=== PATIENT | male | born 1980 | race Caucasian/White ===

== ENCOUNTER 2016-11-26 07:02 | Emergency (ER) | payer OTHER ==
[2016-11-26 07:34] VITALS: BP 158/100
--- NOTE | 2016-11-26 07:36 | UC ---
Katarzyna Bond Thomas, scrib[facility] for [facility] MD on 11/26/16 at 0709 . Throat Pain/Nasal Marty HPI - HPI Summary HPI Summary: In Room: The pt is a 36 y/o M presenting to the ED c/o sinus discomfort that began two days ago. The pt rates the pain 6/10. The pain is aggravated and alleviated by nothing. The patient has treated the pain with Sudafed, ibuprofen (200mg), Xyrtec, and Tylenol MANAGER CREDIT. These medications have not alleviated his pain. Pt additionally c/o insomnia secondary to the sinus discomfort. Pt denies any nasal discharge, N/V/D. He has had his sinuses evaluated by Dr. Conley, ENT , as well as an wire machine cutter and an oral surgeon. These evaluations have shown no structural defects, although his oral surgeon noted that he will have chronically bad sinuses. The patient notes that he has had similar pain approximately once-yearly sinus pain that radiates into teeth and down his neck which is normally alleviated by OTC medication. PMHx: migraines. PSHx: oral surgery 2008. SHx: smoking. FHx: DM, HTN, CA. MD Note: Previous visits for sinus issues including ENT evaluation by Dr. Conley. Vital signs stable, afebrile, pulse ox 99, 6/10, discomfort of sinuses. BP Noted 156/105. He is taking Sudafed and ibuprofen. Nurses note: Vital signs stable, afebrile, pulse ox 99, 6/10, discomfort of sinuses. - History of Current Complaint Stated Complaint: SINUS ISSUE Time Seen by Provider: 11/26/16 07:03 Hx Obtained From: Patient Onset/Duration: Lasting Days - 2, Still Present Pain Intensity: 6 Pain Scale Used: 0-10 Numeric Cough: None Associated Signs & Symptoms: Positive: Sinus Discomfort. Negative: Nasal Discharge, Fever Related History: Other (Noted In Comments) - Prior ENT, wire machine cutter, and oral surgeon evaluation. - Allergies/Home Medications Allergies/Adverse Reactions: Allergies Allergy/AdvReac Type Severity Reaction Status Date / Time No Known Allergies Allergy Verified 11/26/16 07:12 Home Medications: Home Medications Acetaminophen [Tylenol] 1 tab PO Q4HR PRN 11/26/16 [History Confirmed 11/26/16] Ibuprofen [Advil] 1 tab PO Q4HR PRN 11/26/16 [History Confirmed 11/26/16] Pseudoephedrine HCl [Sudafed 12 Hour] 1 tab PO BID 11/26/16 [History Confirmed 11/26/16] PMH/Surg Hx/FS Hx/Imm Hx Previously Healthy: No Endocrine History: Other Other Endocrine History: Previous issues with sinus discomfort. Neurological History: Migraine - Surgical History Surgical History: Yes Surgery Procedure, Year, and Place: oral surgery 2008 - Family History Known Family History: Positive: Hypertension, Diabetes - Social History Substance Use Type: None Review of Systems Constitutional: Negative Skin: Negative Eyes: Negative ENT: Other - POS: sinus discomfort. Respiratory: Negative Cardiovascular: Negative Gastrointestinal: Negative Genitourinary: Negative Motor: Negative Neurovascular: Negative Musculoskeletal: Negative Neurological: Negative Psychological: Negative All Other Systems Reviewed And Are Negative: Yes Physical Exam Triage Information Reviewed: Yes Appearance: Well-Appearing, No Pain Distress, Well-Nourished Vital Signs: Initial Vital Signs Temp 97.6 F 11/26/16 07:05 Pulse 80 11/26/16 07:05 Resp 20 11/26/16 07:05 BP 156/105 11/26/16 07:05 Pulse Ox 99 11/26/16 07:05 Eyes: Positive: Conjunctiva Clear ENT: Positive: Hearing grossly normal, Pharynx normal, TMs normal. Negative: Muffled/hoarse voice Neck: Positive: Supple, Nontender Respiratory: Positive: Chest non-tender, Lungs clear, Normal breath sounds, No respiratory distress Cardiovascular: Positive: RRR, No Murmur Abdomen Description: Positive: Nontender, No Organomegaly, Soft Bowel Sounds: Positive: Present Musculoskeletal: Positive: Strength Intact, Other: - Moves all extremities Neurological: Positive: Alert Psychological: Positive: Age Appropriate Behavior Skin: Negative: rashes Throat Pain/Nasal Course/Dx - Differential Dx/Diagnosis Differential Diagnosis/HQI/PQRI: Sinusitis, URI Provider Diagnoses: Right maxillary sinus congestion Discharge - Discharge Plan Condition: Stable Disposition: HOME Referrals: Clayton House MD [Primary Care Provider] - Additional Instructions: WE DISCUSSED: Thank you for helping us improve patient care by filling out the My Point Survey. Warm, moist, head over the sinuses as frequently as possible. Use Zyrtec for your allergies. Use Benadryl one hour before sleep. Consider using a Neti Pot. You can buy this at [employer]. Ibuprofen 600mg PLUS acetaminophen 500mg every 8 hours. Maximum is 3 doses a day. If this dosage is required for more than 5 days, you should re-check with your doctor. Your blood pressure reading today was 156/105, indicating HYPERTENSION. Follow- up with your primary care provider within 4 weeks for blood pressure readings and further evaluation. Check you blood pressure. STOP TAKING SUDAFED. You need further evaluation if you develop a fever or develop new symptoms. Here is some more information: COUGH, CONGESTION of CHEST, SINUSES OR EARS: The most important goal is to liquefy all the phlegm and get it out of your head and chest. Any illness causing cough, congestion, sore throat or sinus discomfort can be helped by doing the following: STAND UNDER SHOWER STREAM TO LOOSEN SECRETIONS. STAY AWAY FROM ANY SMOKE OR IRRITANTS. WHAT ELSE CAN HELP RELIEVE YOUR SYMPTOMS: GENERAL TYPES OF MEDICINE THAT MAY HELP DECONGESTANTS: helps relieve stuffiness and clears sinuses. Pseudoephedrine ( Sudafed or generic) is effective but you need to ask the pharmacist for it because it may be kept behind the counter. ANTIHISTAMINES: are NOT helpful in many colds and flus because they can worsen sore throat, dry eyes and mouth and cause drowsiness. Examples are diphenhydramine, doxylamine and chlorpheniramine. They can help dry you out if you are having profuse, clear drainage from the nose. EXPECTORANTS: helps thin mucous in the nose and chest, making it easier to clear the fluid out. Expectorants are in most combination cough/cold remedies and should be taken with plenty of water. Guaifenesin is the most common expectorant and it comes in pill or liquid form. Mucinex is an extended release form of guaifenesin. COUGH SUPPRESANT: reduces the body's cough reflex. Dextromethorphan is in over the counter products, but sometimes narcotics such as codeine or hydrocodone are used to suppress cough. SPECIFIC MEDICATIONS: The most important goal is to liquefy all the phlegm and get it out of your head and chest: The following medicines (in prescription form or you can buy them without prescription) may help: To help with cough: DEXTROMETHORPHAN (Vicks, Robitussin, Nyquil and other brands) To help break up phlegm: GUAIFENESIN (Mucinex, Robitussin, other brands) To help clear congestion: PSEUDOEPHEDRINE (Sudafed, Dimetapp, other brands) TRY TO CLEAR NOSE: AFRIN NASAL SPRAY: 2-3 SPRAYS PER NOSTRIL, TWICE A DAY FOR TWO DAYS ONLY. USEFUL WAYS TO FEEL BETTER WITHOUT MEDICATIONS: STAND UNDER SHOWER STREAM TO LOOSEN SECRETIONS. USE A VAPORIZOR. STAY AWAY FROM ANY SMOKE OR IRRITANTS. USE SALINE NASAL SPRAY TO KEEP FLOW OF MUCOUS FROM NOSTRILS AND SINUSES. CONSIDER USING NETI POT TO HELP WITH ALLERGIES AND CONGESTION IN THE NOSE. USE THIS THREE TIMES A WEEK. YOU CAN GET THIS AT [employer] IN [place] OR VARIOUS DRUGSTORES. DRINK LOTS OF WARM FLUIDS USEFUL HOME REMEDIES: WARM WATER GARGLES, WITH TSP OF SALT PER 8 OUNCES OF WATER, GARGLE FOR A FEW SECONDS AND SPIT OUT; GARGLE AND SPIT OUT; EVERY THREE HOURS. AND/OR: WARM WATER OR TEA, HONEY AND LEMON; 2-3 CUPS A DAY. FOR SORE THROAT: KEEP THROAT MOIST WITH LOZENGES; TEA AND HONEY. USE WARM WATER GARGLES 3-4 TIMES A DAY. FOLLOW UP: RE-CHECK IN 1O DAYS, NEEDED, IF YOU ARE NOT IMPROVING. RETURN HERE OR SEE YOUR PHYSICIAN. RE-CHECK SOONER IF INCREASED PAIN OR TEMPERATURE. The documentation as recorded by the Katarzyna aviles Thomas accurately reflects the service I personally performed and the decisions made by me, Bryan Yan MD.
== END 2016-11-26 07:46 | disposition home or self-care (01) ==
LOC: UCEAST 07:02
DX: R09.81 Nasal congestion (principal); G43.909 Migraine, unspecified, not intractable, without status migrainosus
CPT/HCPCS: 99212; G0463

== ENCOUNTER 2016-11-26 19:51 | Emergency (ER) | payer OTHER ==
[2016-11-26 22:28] VITALS: BP 155/91
[2016-11-27] MEDS ORDERED: HYDROcodone/ACETAMIN 5-325 MG* 1 TAB PO ONE
[2016-11-27] MEDS ORDERED: Amoxicillin PO (*) 250 MG CAP PO ONE (00:01)
--- NOTE | 2016-11-27 00:13 | ED ---
Throat Pain/Nasal Congestion - HPI Summary HPI Summary: 36 male presents to ED with complaints of right sided sinus/dental pain that is radiating into right pentecostal and neck. Patient states symptoms began ~ 3 days ago and has been worsening. Patient states he has chronic sinus issues and thought at first it was a sinus infection. Denies fever admits to chills and low grade temp of 99F. Patient seen at this morning and given ibuprofen/ tylenol. Patient was not having relief and was told to come to ER for further evaluation. Patient denies migraine however admits to radiation of pain to right side of face/head. Also states the right upper gums have seemed to become very swollen and tender. Describes pain to be in upper gums/roof of mouth. Has been taking daily zyrtec and decongestant. Denies sore throat, nausea/vomiting, chest pain, difficulty breathing, difficulty swallowing and vision changes. States ibuprofen/tylenol helps dull the pain for a few hours however returns quickly. No other noted swelling, redness, or discharge. No other complaints. No PMHx and no new medications. No recent trauma or injury. - History of Current Complaint Chief Complaint: EDHeadache Time Seen by Provider: 11/26/16 22:45 Hx Obtained From: Patient Onset/Duration: Sudden Onset, Lasting Days, Still Present, Worse Since Severity: Moderate Associated Signs And Symptoms: Positive: Sinus Discomfort Cough: None - Allergies/Home Medications Allergies/Adverse Reactions: Allergies Allergy/AdvReac Type Severity Reaction Status Date / Time No Known Allergies Allergy Verified 11/26/16 20:02 PMH/Surg Hx/FS Hx/Imm Hx Endocrine/Hematology History: Denies: Hx Diabetes, Hx Thyroid Disease Cardiovascular History: Denies: Hx Hypertension Respiratory History: Denies: Hx Asthma, Hx Chronic Obstructive Pulmonary Disease (COPD) GI History: Denies: Hx Ulcer - Surgical History Surgery Procedure, Year, and Place: oral surgery 2008 - Immunization History Immunizations Up to Date: Yes Infectious Disease History: No Infectious Disease History: Denies: Hx Hepatitis, Hx Human Immunodeficiency Virus (HIV), Traveled Outside the [place] in Last 30 Days - Family History Known Family History: Positive: Hypertension, Diabetes - Social History Alcohol Use: Weekly Alcohol Amount: 2-3 weekly Substance Use Type: Reports: None Smoking Status (MU): Former Smoker Review of Systems Positive: Chills Eyes: Negative Positive: Dental Pain, Other - sinus congestion Cardiovascular: Negative Respiratory: Negative Gastrointestinal: Negative Musculoskeletal: Negative Skin: Negative Positive: Headache - right sided face/temporal All Other Systems Reviewed And Are Negative: Yes Physical Exam Triage Information Reviewed: Yes Vital Signs On Initial Exam: Initial Vitals Temp Pulse Resp BP Pulse Ox 97.8 F 60 18 159/103 99 11/26/16 19:58 11/26/16 19:58 11/26/16 19:58 11/26/16 19:58 11/26/16 19:58 BP was 153/89. slightly elevated due to patient taking decongestant this morning and in pain Vital Signs Reviewed: Yes Appearance: Positive: Well-Appearing, No Pain Distress, Well-Nourished Skin: Positive: Warm, Skin Color Reflects Adequate Perfusion, Dry. Negative: Cold, Cyanosis @, Jaundiced, Pale, Erythema @ Head/Face: Positive: Normal Head/Face Inspection Eyes: Positive: EOMI, PRISCA, Conjunctiva Clear ENT: Positive: Normal ENT inspection, Hearing grossly normal, Pharynx normal, TMs normal. Negative: Pharyngeal erythema, Nasal congestion, Nasal drainage, TM bulging, TM dull, TM red, Tonsillar swelling, Tonsillar exudate Dental: Positive: Percussion Tenderness @ - maxillary more so on right side, Abscess @ - appears to be an abscess/swelling right upper molar tooth #1 possible impacted wisdom tooth however no discharge or erythema noted, only noted edema.. Negative: Cervical Lymphadenopathy, Bleeding, Oropharynx Neck: Positive: Supple, Nontender Respiratory/Lung Sounds: Positive: Clear to Auscultation, Breath Sounds Present , Rales, Rhonchi. Negative: Stridor, Wheezes Cardiovascular: Positive: Normal, RRR, Pulses are Symmetrical in both Upper and Lower Extremities. Negative: Murmur, Rub Musculoskeletal: Positive: Normal, Strength/ROM Intact Neurological: Positive: Normal, Sensory/Motor Intact, Alert, Oriented to Person Place, Time, CN Intact II-III, Reflexes Intact, NV Bundle Intact Distally, Normal Gait, Facial Symmetry, Speech Normal. Negative: Facial Droop, Slurred Speech Psychiatric: Positive: Affect/Mood Appropriate - Bledsoe Coma Scale Coma Scale Total: 15 Diagnostics - Vital Signs Vital Signs Temp Pulse Resp BP Pulse Ox 11/26/16 22:28 99.1 F 83 18 155/91 97 11/26/16 20:03 97.8 F 60 18 159/103 99 11/26/16 19:58 97.8 F 60 18 159/103 99 - Laboratory Lab Statement: Any lab studies that have been ordered have been reviewed, and results considered in the medical decision making process. EENT Course/Dx - Course Course Of Treatment: appears patient is suffering from a dental abscess due to PE findings. does not appear to be sinusitis however pain is described as upper gums/mouth pain. no concern for migraine at this time or other emergent etiology. offered CT maxillofacial however patient did not want CT image at this time due to treatment probably not changing. aware of worsening signs and symptoms, norco and ibuprofen for pain. warm/cool compresses. follow up dentist and pcp. - Differential Diagnoses Differential Diagnoses: Dental Abscess, Dental Caries, Fractured Tooth, Sinusitis, URI/Bronchitis, Other - migraine - Diagnoses Provider Diagnoses: Dental abscess Discharge - Discharge Plan Condition: Stable Disposition: HOME Prescriptions: Amoxicillin PO (*) [Amoxicillin 500 MG CAP*] 500 mg PO Q12H #19 cap Patient Education Materials: Dental Abscess (ED) Referrals: Clayton House MD [Primary Care Provider] - Additional Instructions: Take prescribed medication as directed. Do not miss a dose. Take pain medication as directed, hydrocodone every 4-6 hours with ibuprofen in between. Take with food. Do not drive while taking hydrocodone. Follow up and make an appointment with dentist. Follow up PCP. If new symptoms develop, symptoms persist or worsening symptoms please seek medical attention promptly as discussed.
== END 2016-11-27 00:15 | disposition home or self-care (01) ==
LOC: ED 19:51
DX: K04.7 Periapical abscess without sinus (principal); K08.89 Other specified disorders of teeth and supporting structures; R51 Headache; Z87.891 Personal history of nicotine dependence
CPT/HCPCS: 99282; A9270-GY

== ENCOUNTER 2016-11-28 13:34 | Emergency (ER) | payer OTHER ==
[2016-11-28] MEDS ORDERED: Clindamycin 900 MG IVPREMIX(* 900 MG/50 ML SDV IV ONE (14:23)
[2016-11-28 14:48] LABS: Hematocrit 45 % (42-52); Hemoglobin 15.7 g/dl (14.0-18.0); Mean Corpuscular HGB Conc 35 g/dl (31-36); Mean Corpuscular Hemoglobin 33 pg (27-31); Mean Corpuscular Volume 93 fL (80-94); Mean Platelet Volume 9 um3 (7.4-10.4); Red Cell Distribution Width 12 % (10.5-15); White Blood Count 12.3 10^3/ul (3.5-10.8)
[2016-11-28 15:09] LABS: Albumin 4.3 g/dL (3.2-5.2); BUN/Creatinine Ratio 8.3 (8-20); Calcium 10.1 mg/dL (8.6-10.3); EGFR African American 160.7 (>60); Potassium 4.2 mmol/L (3.5-5.0); Total Protein 8.3 g/dL (6.4-8.9)
--- NOTE | 2016-11-28 15:30 | ED ---
Throat Pain/Nasal Congestion - HPI Summary HPI Summary: 36M presents with facial swelling for 5 days. was seen here and placed on amoxicillin and follow up with dentist. dentist attempted drainage and was unsuccessfully. told to come to ED because facial swelling is worst and needs IV antibiotics. was changed in PCN by dentist. no fever. no pain with EOM. no swelling around eyes. denies any chest pain or SOB. is taking pain medication prescribed by dentist. has follow up tomorrow with dentist for drainage. - History of Current Complaint Chief Complaint: EDDentalPain Time Seen by Provider: 11/28/16 14:00 - Allergies/Home Medications Allergies/Adverse Reactions: Allergies Allergy/AdvReac Type Severity Reaction Status Date / Time No Known Allergies Allergy Verified 11/26/16 20:02 PMH/Surg Hx/FS Hx/Imm Hx Endocrine/Hematology History: Denies: Hx Diabetes, Hx Thyroid Disease Cardiovascular History: Denies: Hx Hypertension Respiratory History: Denies: Hx Asthma, Hx Chronic Obstructive Pulmonary Disease (COPD) GI History: Denies: Hx Ulcer - Surgical History Surgery Procedure, Year, and Place: oral surgery 2008 Infectious Disease History: No Infectious Disease History: Denies: Hx Hepatitis, Hx Human Immunodeficiency Virus (HIV), Traveled Outside the [place] in Last 30 Days - Family History Known Family History: Positive: Hypertension, Diabetes - Social History Alcohol Use: Weekly Alcohol Amount: 2-3 weekly Substance Use Type: Reports: None Smoking Status (MU): Former Smoker Review of Systems Negative: Fever Positive: Dental Pain, Other - swelling left side of facew Negative: Chest Pain Negative: Shortness Of Breath All Other Systems Reviewed And Are Negative: Yes Physical Exam Triage Information Reviewed: Yes Vital Signs On Initial Exam: Initial Vitals Temp Pulse Resp BP Pulse Ox 97.9 F 77 18 147/88 97 11/28/16 13:35 11/28/16 13:35 11/28/16 13:35 11/28/16 13:35 11/28/16 13:35 Vital Signs Reviewed: Yes Appearance: Positive: Well-Appearing Skin: Positive: Warm, Dry Head/Face: Positive: Other - sewlling on left side of face from left temporal region to left upper gum Eyes: Positive: Normal ENT: Positive: Normal ENT inspection, Pharynx normal, TMs normal Dental: Positive: Percussion Tenderness @, Gross Decay/Caries @ - 3, Abscess @ - left gum Neck: Positive: Supple, Nontender, No Lymphadenopathy Respiratory/Lung Sounds: Positive: Clear to Auscultation, Breath Sounds Present Cardiovascular: Positive: Normal, RRR Diagnostics - Vital Signs Vital Signs Temp Pulse Resp BP Pulse Ox 11/28/16 14:46 97.9 F 77 18 147/88 98 11/28/16 13:35 97.9 F 77 18 147/88 97 - Laboratory Lab Results: Lab Results 11/28/16 11/28/16 11/28/16 Range/Units 14:37 14:37 14:37 WBC 12.3 H (3.5-10.8) 10^3/ul RBC 4.80 (4.0-5.4) 10^6/ul Hgb 15.7 (14.0-18.0) g/dl Hct 45 (42-52) % MCV 93 (80-94) fL MCH 33 H (27-31) pg MCHC 35 (31-36) g/dl RDW 12 (10.5-15) % Plt Count 153 (150-450) 10^3/ul MPV 9 (7.4-10.4) um3 Neut % (Auto) 80.5 (38-83) % Lymph % (Auto) 9.1 L (25-47) % Milam % (Auto) 10.0 H (1-9) % Eos % (Auto) 0.1 (0-6) % Baso % (Auto) 0.3 (0-2) % Absolute Neuts (auto) 9.9 H (1.5-7.7) 10^3/ul Absolute Lymphs (auto) 1.1 (1.0-4.8) 10^3/ul Absolute Monos (auto) 1.2 H (0-0.8) 10^3/ul Absolute Eos (auto) 0 (0-0.6) 10^3/ul Absolute Basos (auto) 0 (0-0.2) 10^3/ul Absolute Nucleated RBC 0 10^3/ul Nucleated RBC % 0 Sodium 132 L (133-145) mmol/L Potassium 4.2 (3.5-5.0) mmol/L Chloride 95 L (101-111) mmol/L Carbon Dioxide 31 (22-32) mmol/L Anion Gap 6 (2-11) mmol/L BUN 6 (6-24) mg/dL Creatinine 0.72 (0.67-1.17) mg/dL Est GFR ( Amer) 160.7 (>60) Est GFR (Non-Af Amer) 125.0 (>60) BUN/Creatinine Ratio 8.3 (8-20) Glucose 107 H (70-100) mg/dL Lactic Acid 0.8 (0.5-2.0) mmol/L Calcium 10.1 (8.6-10.3) mg/dL Total Bilirubin 1.00 (0.2-1.0) mg/dL AST 17 (13-39) U/L ALT 14 (7-52) U/L Alkaline Phosphatase 60 (34-104) U/L Total Protein 8.3 (6.4-8.9) g/dL Albumin 4.3 (3.2-5.2) g/dL Globulin 4.0 (2-4) g/dL Albumin/Globulin Ratio 1.1 (1-3) Result Diagrams: 11/28/16 14:37 11/28/16 14:37 Lab Statement: Any lab studies that have been ordered have been reviewed, and results considered in the medical decision making process. EENT Course/Dx - Course Course Of Treatment: 36M presents with facial swelling for 5 days. was seen here and placed on amoxicillin and follow up with dentist. dentist attempted drainage and was unsuccessfully. told to come to ED because facial swelling is worst and needs IV antibiotics. was changed in PCN by dentist. no fever. no pain with EOM. no swelling around eyes. denies any chest pain or SOB. is taking pain medication prescribed by dentist. has follow up tomorrow with dentist for drainage. discussed no pain EOM or swelling around eyes so will not get CT at this time. labs wbc 12. gave dose of clindamycin IV. told to follow up tomorrow. warned if develop pain with EOM to return for work up for post septal cellulitis. patient understands and agrees with plan. - Differential Diagnoses Differential Diagnoses: Dental Abscess, Dental Caries, Periorbital/Orbital Cellulitis - Diagnoses Provider Diagnoses: Dental abscess Discharge - Discharge Plan Condition: Good Disposition: HOME Patient Education Materials: Dental Abscess (ED) Referrals: Clayton House MD [Primary Care Provider] - Additional Instructions: Follow up with dentist as scheduled Continue penicillin Return to ED if develop any pain with eye movement or any new or worsening symptoms Images - Images Dental: 1 - pain
[2016-11-28 16:00] VITALS: BP 123/74
== END 2016-11-28 15:59 | disposition home or self-care (01) ==
LOC: ED 13:34
DX: K04.7 Periapical abscess without sinus (principal); R22.0 Localized swelling, mass and lump, head
CPT/HCPCS: 36415; 80053; 83605; 85025; 99283